=== PATIENT | female | born 1945 | race Caucasian/White ===

== ENCOUNTER 2022-09-07 09:23 | Outpatient (CLI) | payer MEDICARE, OTHER ==
[2022-09-07] MEDS ORDERED: iohexol 350 MG/ML 50ML vial IV ONE (09:47)
[2022-09-07] MEDS ORDERED: iohexol 350MG/ML 100ml bottle IV ONE (09:47)
== END 2022-09-07 23:59 | disposition home or self-care (01) ==
LOC: RAD 09:23
PROVIDERS: ATTEND Surgery
DX: I72.4 Aneurysm of artery of lower extremity (principal); I77.811 Abdominal aortic ectasia; I70.0 Atherosclerosis of aorta; I65.23 Occlusion and stenosis of bilateral carotid arteries; I70.8 Atherosclerosis of other arteries; Z90.49 Acquired absence of other specified parts of digestive tract
CPT/HCPCS: 75635; J3490; Q9967